=== PATIENT | male | born 1940 | race Caucasian/White ===

== ENCOUNTER 2016-11-02 19:30 | Day surgery (SDC) | payer OTHER, MEDICARE ==
[2016-10-29 12:36] LABS: HEMATOCRIT 46.3 % (40.0-51.0)
[2016-10-29 12:45] LABS: BUN (BLOOD UREA NITROGEN) 16 MG/DL (6-23); CALCIUM, SERUM 8.8 MG/DL (8.5-10.4); CHLORIDE, SERUM 104 MMOL/L (96-112); CO2 (CARBON DIOXIDE) 32 MMOL/L (24-34); CREATININE 1.31 MG/DL (0.70-1.30); GFR AFRICAN AMERICAN 62 ML/MIN (>=60); GFR NON AFRICAN AMERICAN 54 ML/MIN (>=60); GLUCOSE, SERUM 94 MG/DL (60-99); POTASSIUM, SERUM 4.9 MMOL/L (3.5-5.3); SODIUM, SERUM 139 MMOL/L (135-148)
[~2016-11-02] VITALS: Ht 203.2 cm; Wt 124.7 kg
--- NOTE | ~2016-11-02 | OP ---
Record Of Operation [facility] [address] [place]. [address] NAME: SUNITHA MONTAÑO : 44 STATUS : [facility]#: [id number] AGE: 75 ADM/REG DATE : 11/02/16 MR#: [id number] REPORT SERV DATE: 11/03/16 DICTATED BY: SHELLI LARA JR. DATE: 11/02/16 REPORT STATUS : Draft TRANSCRIBED BY: CINTHIA DATE: 11/02/16 DATE OF PROCEDURE: 11/02/2016 CERTIFIED FRAUD EXAMINER: Samia Olivia. PROCEDURE: Repair of recurrent left inguinal hernia. PREOPERATIVE DIAGNOSIS: Recurrent left inguinal hernia. POSTOPERATIVE DIAGNOSIS: Recurrent left inguinal hernia. ANESTHESIA: General. INDICATIONS: The patient has presented with a left inguinal swelling after straining with development of obvious hernia on examination which is symptomatic. He has had previous hernia repair on this area in the past. FINDINGS: On exploration of inguinal area, there was evidence of some scarring from previous surgery. There is evidence of an indirect inguinal hernia and also direct hernia defect. This is repaired with high ligation of the hernia sac at the internal ring and also with a mesh tension-free repair. DESCRIPTION OF PROCEDURE: With adequate general anesthesia, the patient was placed in the supine position. The 0.5% Marcaine was also used for local infiltration of anesthesia. A curvilinear incision was made in the groin. The incision deepened down through subcutaneous tissues. The external oblique was identified. This was divided from the area of the internal ring toward the external ring. Then underlying adhesions were dissected sharply. The cord was identified, and this was dissected free and encircled with a Jesus drain. 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 Then, a Parietex ProGrip mesh was cut to appropriate size. It was placed to cover the defect, placed in the precut defect around the cord. It was secured medially to pubic tubercle and conjoined tendon, superior to the transversalis fascia and inferior inguinal ligament. This produced satisfactory repair. Then, the external oblique was closed over this with a running 2-0 Vicryl, the subcutaneous tissues with 3-0 Vicryl and skin with dermal Monocryl. Sterile dressings were applied. The patient left the operating room in satisfactory condition. ESTIMATED BLOOD LOSS: 10 mL. RENAE/CINTHIA Shelli Lara Record Of Operation [address] [address] NAME: SUNITHA MONTAÑO : 44 STATUS : [facility] PAT#: [id number] AGE: 75 ADM/REG DATE : 11/02/16 MR#: [id number] REPORT SERV DATE: 11/03/16 DICTATED BY: SHELLI LARA JR. DATE: 11/02/16 REPORT STATUS : Draft TRANSCRIBED BY: CINTHIA DATE: 11/02/16 Isabel Diamond / [id number] CC: Isabel Castro Jr., MD
[~2016-11-02 19:30] MED LIST: AT25 PO; B COMPLETE PO; CORTIZONE-10 1%28 GM TOP; HALF81 PO; HYGROTON 25 MG25 MG PO; KEPPRA750 MG PO; PROAIR HFA INH; PROZ10 PO; PULMICORT180 MCG INH; SPIRIVA INH; VITAMIN B-121000 MC1 SL; ZESTRIL20 MG PO; ZOCOR80 MG PO
== END 2016-11-02 21:10 | disposition home or self-care (01) ==
LOC: SDC 19:30
PROVIDERS: Specialist
PROC: 0YU60JZ Supplement Left Inguinal Region with Synthetic Substitute, Open Approach (ICD-10-PCS; principal; 2016-11-02 12:30)
DX: K40.91 Unilateral inguinal hernia, without obstruction or gangrene, recurrent (principal); D17.6 Benign lipomatous neoplasm of spermatic cord; J44.9 Chronic obstructive pulmonary disease, unspecified; F43.10 Post-traumatic stress disorder, unspecified; I73.9 Peripheral vascular disease, unspecified; I10 Essential (primary) hypertension; I25.10 Atherosclerotic heart disease of native coronary artery without angina pectoris; Z90.89 Acquired absence of other organs; Z98.52 Vasectomy status; Z79.82 Long term (current) use of aspirin; Z87.891 Personal history of nicotine dependence; Z98.41 Cataract extraction status, right eye; Z98.42 Cataract extraction status, left eye; Z98.890 Other specified postprocedural states; Z96.1 Presence of intraocular lens; Z79.899 Other long term (current) drug therapy
CPT/HCPCS: 80048; 82962; 85014; 85018; 88302; 93005; A9270-GY; C1781; J0360; J0690; J2270; J2405; J2710; J3010